=== PATIENT | female | born 1995 | race African-American/Black ===

== ENCOUNTER 2018-04-02 20:58 | Emergency (ER) | payer MEDICAID ==
[~2018-04-02 20:58] MED LIST: CLARITIN
== END 2018-04-02 22:26 | disposition left against medical advice (07) ==
LOC: ER 21:07
DX: Z53.21 Procedure and treatment not carried out due to patient leaving prior to being seen by health care provider (principal)

== ENCOUNTER 2020-10-22 10:32 | Emergency (ER) | payer OTHER, MEDICAID ==
[~2020-10-22] VITALS: Ht 172.7 cm; Wt 96.0 kg
[2020-10-22] MEDS ORDERED: HYDROCODONE/ACETAMINOPHEN 5/325MG TABLET PO ONE (11:00)
[2020-10-22] MEDS ORDERED: ACET-2708 MT (13:37)
[2020-10-22] MEDS ORDERED: IBUP-2029 MT (13:37)
[2020-10-22 14:01] VITALS: BP 109/78
== END 2020-10-22 14:03 | disposition home or self-care (01) ==
LOC: ER 10:32
DX: S06.9X9A Unspecified intracranial injury with loss of consciousness of unspecified duration, initial encounter (principal); E11.9 Type 2 diabetes mellitus without complications; Y04.0XXA Assault by unarmed brawl or fight, initial encounter; Y93.89 Activity, other specified; Y92.89 Other specified places as the place of occurrence of the external cause; Y99.8 Other external cause status
CPT/HCPCS: 70486; 81025; 99285